=== PATIENT | male | born 1980 | race Caucasian/White ===

== ENCOUNTER 2023-10-09 11:12 | Emergency (ER) | payer OTHER ==
[~2023-10-09] VITALS: Ht 175.3 cm; Wt 86.4 kg
[2023-10-09 11:17] VITALS: BP 154/96; PULSE 73; RESP 16; TEMP 97.8; O2SAT 100
[2023-10-09] MEDS ORDERED: IBUP-2213 PO (13:07)
--- NOTE | 2023-10-09 13:11 | NUR ---
Patient discharged with v/s stable. Written and verbal after care instructions given FOR LYMPHADENOPATHY Patient alert, oriented and verbalized understanding of instructions. Ambulatory with steady gait. All questions addressed prior to discharge. ID band removed. Patient advised to follow up with PMD. Rx of IBUPROFEN given. Opportunity to ask questions provided and answered.
== END 2023-10-09 13:11 | disposition home or self-care (01) ==
LOC: MED 11:12
DX: I88.9 Nonspecific lymphadenitis, unspecified (principal); Z79.899 Other long term (current) drug therapy
CPT/HCPCS: 99284